=== PATIENT | female | born 1925 | race Caucasian/White ===

== ENCOUNTER 2016-05-19 13:03 | Inpatient (IN) | payer OTHER, MEDICARE ==
[~2016-05-19] VITALS: Ht 160 cm; Wt 72.6 kg
[~2016-05-19 13:03] MED LIST: AMLODIPINE BESY10 MG PO; CITALOPRAM HBR20 M1 PO; CLOPIDOGREL75 MG PO; COLACE100 MG PO; CYMBALTA20 MG PO; DONEPEZIL HCL5 MG PO; DULOXETINE HCL30 MG PO; FLUOXETINE HCL10 MG PO; GLIPIZIDE ER2.5 MG PO; HYDROCODON-ACE1 EAC7 PO; LIPITOR10 MG PO; METOPROLOL SUCC25 MG PO; MIRALAX255 GM PO; NITROGLYCERIN0.4 MG PO; NORVASC5 MG PO; OMEPRAZOLE20 MG PO; PAROXETINE HCL10 MG PO; PERCOCET 5/31 TABLET PO; PLAVIX75 MG PO; PRILOSEC20 MG PO; ROBITUSSIN DM118 ML PO; TESSALON PERLE100 MG PO; TRAZODONE HCL50 MG PO; ZESTRIL,PRINIVI40 MG PO; ZESTRIL40 MG PO; ZOFRAN4 MG PO; ZOFRAN8 MG PO
[2016-05-19] MEDS ORDERED: ARICEPT10 MG PO (13:20)
[2016-05-19] MEDS ORDERED: CYMBALTA60 MG PO (13:22)
[2016-05-19] MEDS ORDERED: QUETIAPINE FUMA25 MG PO ×2 (13:23→13:24)
[2016-05-19 13:32] LABS: HEMATOCRIT 41.2 % (36.0-46.0); MCH 30.3 PG (29.0-34.0); MCHC 34.2 G/DL (30.0-36.0); MCV 88.6 FL (83-99); MEAN PLAT.VOLUME 9.3 uM^3 (9.5-12.4); PLATELET COUNT 347 K/uL (156-360); RBC DIS.WIDTH-CV 12.7 % (11.8-14.6); RBC DIS.WIDTH-SD 40.6 % (39-53); RED BLOOD COUNT 4.65 M/uL (3.80-5.20); WHITE BLOOD COUNT 11.6 K/uL (4.1-10.2)
[2016-05-19 13:44] LABS: CHLORIDE 106 mEq/L (99-109); POTASSIUM 3.9 mEq/L (3.7-5.4); SODIUM 141 mEq/L (136-147)
[2016-05-19 13:45] LABS: GLUCOSE 133 mg/dL (70-99)
[2016-05-19 13:47] LABS: ANION GAP 10 MEQ/L (2-14)
[2016-05-19 13:49] LABS: GFR ESTIMATE (CALCULATED) > 59 mL/min/
[2016-05-19 13:50] LABS: UREA NITROGEN (BUN) 15 mg/dL (9-23)
[2016-05-19 14:05] LABS: EOSINOPHIL (%) 0.6 % (0-5); EOSINOPHIL COUNT 0.1 K/uL (0-0.3); IMMATURE GRANULOCYTE (%) 0.2 % (0.0-0.7); IMMATURE GRANULOCYTE COUNT 0.2 K/uL; LYMPHOCYTE COUNT 2.2 K/uL (1.0-2.8); MONOCYTE (%) 6.5 % (3-12); MONOCYTE COUNT 0.7 K/uL (0-0.8); NEUTROPHIL (%) 73.3 % (45-76); NEUTROPHIL COUNT 8.3 K/uL (1.8-6.4)
[2016-05-19 14:11] LABS: TOTAL BILIRUBIN 0.4 mg/dL (0.0-1.0)
[2016-05-19 14:12] LABS: ALKALINE PHOSPHATASE 67 IU/L (3-129)
[2016-05-19 14:15] LABS: DIRECT BILIRUBIN 0.2 mg/dL (0.0-0.3)
[2016-05-19 14:21] LABS: TROP-I INTERPRETATION NEGATIVE; TROPONIN-I < 0.01 ng/mL (0.0-0.30)
[2016-05-19 14:38] LABS: ADD MIUA? YES; BILIRUBIN NEGATIVE; BLOOD NEGATIVE; COLOR YELLOW ((YELLOW)); GLUCOSE (STRIP) NEGATIVE; KETONES 20; LEUKOCYTES TRACE; NITRITE NEGATIVE; PROTEIN (STRIP) NEGATIVE; SPECIFIC GRAVITY 1.009 (1.000-1.030); UROBILINOGEN 0.2 MG/DL (0.2-1.0)
[2016-05-19 14:44] LABS: BACTERIA RARE /HPF; EPITHELIAL CELLS RARE /HPF; HYALINE CASTS 0-5 /LPF; MUCUS TRACE /LPF; RED BLOOD CELLS 0-5 /HPF (0-5); WHITE BLOOD CELLS 0-5 /HPF (0-5)
[2016-05-19 20:43] LABS: TROP-I INTERPRETATION NEGATIVE; TROPONIN-I 0.01 ng/mL (0.0-0.30)
[2016-05-19 21:05] VITALS: BP 147/74
[2016-05-20 01:52] LABS: TROP-I INTERPRETATION NEGATIVE; TROPONIN-I < 0.01 ng/mL (0.0-0.30)
[2016-05-20 02:27] VITALS: BP 117/60
[2016-05-20 08:19] LABS: HEMATOCRIT 37.8 % (36.0-46.0); MCH 30.9 PG (29.0-34.0); MCHC 34.7 G/DL (30.0-36.0); MCV 89.2 FL (83-99); PLATELET COUNT 342 K/uL (156-360); RBC DIS.WIDTH-CV 12.7 % (11.8-14.6); RBC DIS.WIDTH-SD 40.6 % (39-53); RED BLOOD COUNT 4.24 M/uL (3.80-5.20); WHITE BLOOD COUNT 12.4 K/uL (4.1-10.2)
[2016-05-20 08:44] LABS: ANION GAP 13 MEQ/L (2-14); CHLORIDE 103 MEQ/L (99-109); GFR ESTIMATE (CALCULATED) > 59 mL/min/; GLUCOSE 152 mg/dL (70-99); POTASSIUM 4.5 MEQ/L (3.7-5.4); SAMPLE HEMOLYSIS CHECK 0; SAMPLE ICTERIC CHECK 0; SAMPLE LIPEMIA CHECK 0; SODIUM 139 MEQ/L (136-147); UREA NITROGEN (BUN) 19 mg/dL (9-23)
[2016-05-20] MEDS ORDERED: ANTIVERT12.5 MG PO (09:09)
[2016-05-20 12:21] VITALS: BP 139/67
== END 2016-05-20 13:28 | disposition home or self-care (01) | DRG 149 ==
LOC: EME → EDBD 13:03 → 5EAST 18:12 → EDOF 18:12 → 5EAST 20:47
PROVIDERS: Emergency Medicine; Student in an Organized Health Care Education/Training Program
DX: R42 Dizziness and giddiness (principal); R00.0 Tachycardia, unspecified; I10 Essential (primary) hypertension; I25.10 Atherosclerotic heart disease of native coronary artery without angina pectoris; E78.5 Hyperlipidemia, unspecified; E11.9 Type 2 diabetes mellitus without complications; G89.29 Other chronic pain; F32.9 Major depressive disorder, single episode, unspecified; Z95.5 Presence of coronary angioplasty implant and graft; F01.50 Vascular dementia, unspecified severity, without behavioral disturbance, psychotic disturbance, mood disturbance, and anxiety; Z90.49 Acquired absence of other specified parts of digestive tract
CPT/HCPCS: 70450; 71020; 80048; 80076; 81003; 84484; 85025; 85027; 87040; 93005; 99281; 99285; J1100; J1650; J1885; J2060; J2405; J3360; J7040

== ENCOUNTER 2016-12-21 12:51 | Emergency (ER) | payer OTHER, MEDICARE ==
[~2016-12-21] VITALS: Ht 160 cm; Wt 72.5 kg
[~2016-12-21 12:51] MED LIST changes: +ANTIVERT12.5 MG PO; +ARICEPT10 MG PO; +CYMBALTA60 MG PO; +QUETIAPINE FUMA25 MG PO
[2016-12-21 15:38] LABS: BASOPHIL COUNT 0.1 K/uL (0-0.1); EOSINOPHIL (%) 1.1 % (0-5); EOSINOPHIL COUNT 0.1 K/uL (0-0.3); HEMATOCRIT 37.5 % (36.0-46.0); IMMATURE GRANULOCYTE (%) 0.3 % (0.0-0.7); LYMPHOCYTE COUNT 2.7 K/uL (1.0-2.8); MCH 30.8 PG (29.0-34.0); MCHC 33.9 G/DL (30.0-36.0); MCV 90.8 FL (83-99); MEAN PLAT.VOLUME 9.4 uM^3 (9.5-12.4); MONOCYTE (%) 8.5 % (3-12); MONOCYTE COUNT 0.8 K/uL (0-0.8); NEUTROPHIL (%) 61.6 % (45-76); PLATELET COUNT 315 K/uL (156-360); RBC DIS.WIDTH-CV 12.2 % (11.8-14.6); RBC DIS.WIDTH-SD 40.8 % (39-53); RED BLOOD COUNT 4.13 M/uL (3.80-5.20); WHITE BLOOD COUNT 9.7 K/uL (4.1-10.2)
[2016-12-21 15:53] LABS: CHLORIDE 108 mEq/L (99-109); POTASSIUM 4.1 mEq/L (3.7-5.4); SODIUM 142 mEq/L (136-147)
[2016-12-21 15:54] LABS: GLUCOSE 75 mg/dL (70-99)
[2016-12-21 15:56] LABS: ANION GAP 10 MEQ/L (2-14)
[2016-12-21 15:58] LABS: GFR ESTIMATE (CALCULATED) > 59 mL/min/
[2016-12-21 15:58] LABS: ADD MIUA? YES; BILIRUBIN NEGATIVE; BLOOD NEGATIVE; COLOR YELLOW ((YELLOW)); GLUCOSE (STRIP) 50; KETONES NEGATIVE; LEUKOCYTES TRACE; NITRITE NEGATIVE; PROTEIN (STRIP) NEGATIVE; SPECIFIC GRAVITY 1.008 (1.000-1.030); UROBILINOGEN 0.2 MG/DL (0.2-1.0)
[2016-12-21 15:59] LABS: UREA NITROGEN (BUN) 17 mg/dL (9-23)
[2016-12-21 16:07] LABS: BACTERIA RARE /HPF; EPITHELIAL CELLS RARE /HPF; MUCUS NONE SEEN /LPF; RED BLOOD CELLS 0-5 /HPF (0-5); WHITE BLOOD CELLS 0-5 /HPF (0-5)
[2016-12-21 19:25] VITALS: BP 119/78
== END 2016-12-21 19:26 | disposition home or self-care (01) ==
LOC: EME 12:51
PROVIDERS: Emergency Medicine
DX: M54.9 Dorsalgia, unspecified (principal); E11.9 Type 2 diabetes mellitus without complications; I10 Essential (primary) hypertension; I25.2 Old myocardial infarction; K21.9 Gastro-esophageal reflux disease without esophagitis; Z98.61 Coronary angioplasty status; Z79.84 Long term (current) use of oral hypoglycemic drugs; Z87.891 Personal history of nicotine dependence
CPT/HCPCS: 72148; 80048; 81003; 85025; 99281; 99285; J2270; J3010; J7040